=== PATIENT | female | born 1995 | race Caucasian/White ===

== ENCOUNTER 2019-02-10 04:19 | Inpatient (IN) ==
[2019-02-10] MEDS ORDERED: BUTORPHANOL 2 MG/ML VIAL IV PRN (04:27)
[2019-02-10] MEDS ORDERED: ONDANSETRON 4 MG/2 ML VIAL IV PRN ×2 (04:27→06:25)
[2019-02-10] MEDS ORDERED: MEPERIDINE 50 MG/1 ML VIAL IV PRN (04:27)
[2019-02-10] MEDS ORDERED: OXYTOCIN/LR 20 UNIT/1,000 ML BAG IV SCH (04:30)
[2019-02-10] MEDS ORDERED: LACTATED RINGERS 1,000 ML IV SCH (04:30)
[2019-02-10] MEDS ORDERED: miSOPROStol 200 MCG TABLET ONE (04:39)
[2019-02-10] MEDS ORDERED: METHYLERGONOVINE 0.2 MG/1 ML AMP ONE (04:40)
[2019-02-10] MEDS ORDERED: CARBOPROST TROMETHAMINE 250 MCG/ML AMP IM ONE (04:40)
[2019-02-10] MEDS ORDERED: OXYTOCIN/LR 20 UNIT/1,000 ML BAG IV ONE ×2 (04:57→06:25)
[2019-02-10 05:17] LABS: Basophils % 0.2 % (0.0-0.8); Eosinophils % 0.2 % (0.00-10.9); Hematocrit 31.5 VOL% (35.7-47.0); Hemoglobin 9.9 GM/DL (12.0-16.0); Immature Granulocytes % 0.5 %; Immature Granulocytes Absolute 0.03 #; Lymphocytes # 1.5 10*3/uL (1.4-4.0); Lymphocytes % 22.2 % (21.3-54.2); Mean Corpuscular HGB Conc 31.4 GM/DL (32-36); Mean Corpuscular Volume 79.1 FL (87-102); Mean Platelet Volume 11.6 FL (9.6-12.0); Monocytes % 8.9 % (1.7-12.7); Platelet Count 199 T/CUMM (130-400); Red Blood Count 3.98 MC/CUMM (3.8-5.5); Red Cell Distribution Width 16.1 % (9.3-17.3); White Blood Count 6.6 T/CUMM (4-12)
[2019-02-10 05:37] LABS: Alanine Aminotransferase 16 U/L (13-56); Albumin 2.6 G/DL (3.4-5.0); Alkaline Phosphatase 170 U/L (45-117); Aspartate Amino Transferase 12 U/L (0-37); Bilirubin,Total < 0.39 MG/DL (0.2-1.0); Blood Urea Nitrogen 6 MG/DL (7-18); Glucose 116 MG/DL (74-106); Osmolality,Calculated 277.4 MOS/KG (273-304); Total Protein 7.1 G/DL (6.4-8.3)
[2019-02-10] MEDS ORDERED: LIDOCAINE 1% 50 ML VIAL ONE (05:53)
[2019-02-10] MEDS ORDERED: LANOLIN 50% CREAM 0.3 OZ TUBE TOP PRN (06:25)
[2019-02-10] MEDS ORDERED: WITCH HAZEL PADS 100/JAR TOP PRN (06:25)
[2019-02-10] MEDS ORDERED: RHO(D) IMMUNE GLOBULIN 300 MCG SYRINGE IM ONE (06:25)
[2019-02-10] MEDS ORDERED: HYDROCORTISONE 2.5% RECTAL CREAM 30 GM TUBE TOP PRN (06:25)
[2019-02-10] MEDS ORDERED: ACETAMINOPHEN 325 MG TABLET PO PRN (06:25)
[2019-02-10] MEDS ORDERED: DIPH/TET/ACEL PERT BOOSTER VACCINE 0.5 ML VIAL IM ONE (06:25)
[2019-02-10] MEDS ORDERED: BISACODYL 10 MG SUPP RECTAL PRN (06:25)
[2019-02-10] MEDS ORDERED: BENZOCAINE 20%/MENTHOL 0.5% SPRAY 56 GM CAN TOP PRN (06:25)
[2019-02-10] MEDS ORDERED: MEASLES/MUMPS/RUBELLA VACCINE 0.5 ML VIAL SUBCUT ONE (06:25)
[2019-02-10 08:07] LABS: Apearance,Urine CLEAR (Clear); Bacteria,Urine Occasional /HPF (Few); Bilirubin,Urine Negative (Negative); Blood, Urine Negative (Negative); Glucose,Urine (UA) Negative (Negative); Ketones,Urine 5 mg/dL (Negative); Mucus,Urine Occasional /LPF (Occasional); Nitrite,Urine Negative (Negative); Protein,Urine Negative; RBC,Urine 1 /HPF (0-4); Squamous Epithelial Cell,Urine Occasional /HPF (0-10); Urine Color Yellow (Yellow); Urine Specific Gravity 1.026 (1.001-1.035); Urine Urobilinogen < 2.0 EU/DL (0.2-1.0); WBC,Urine 1 /HPF (0-6)
[2019-02-10] MEDS: oxyCODONE/ACETAMINOPHEN 5-325 MG TABLET PO PRN (08:42)
[2019-02-10] MEDS: MULTIVITAMIN (PRENATAL) TABLET PO SCH (09:47)
[2019-02-10] MEDS: DOCUSATE SODIUM 100 MG CAPSULE PO SCH ×2 (09:47→20:39)
[2019-02-10] MEDS: FERROUS SULFATE 325 MG TABLET PO SCH ×2 (09:47→20:39)
[2019-02-10] MEDS: IBUPROFEN 800 MG TABLET PO PRN (15:26)
[2019-02-11] MEDS: IBUPROFEN 800 MG TABLET PO PRN ×2 (03:15→23:39)
[2019-02-11] MEDS: MAGNESIUM HYDROXIDE SUSP 30 ML UDCUP PO PRN ×2 (03:15→14:12)
[2019-02-11 06:31] LABS: Basophils % 0.2 % (0.0-0.8); Eosinophils % 0.2 % (0.00-10.9); Hematocrit 28.1 VOL% (35.7-47.0); Hemoglobin 8.9 GM/DL (12.0-16.0); Immature Granulocytes % 0.9 %; Immature Granulocytes Absolute 0.07 #; Lymphocytes # 2.4 10*3/uL (1.4-4.0); Lymphocytes % 29.6 % (21.3-54.2); Mean Corpuscular HGB Conc 31.7 GM/DL (32-36); Mean Corpuscular Volume 79.4 FL (87-102); Mean Platelet Volume 11.5 FL (9.6-12.0); Monocytes % 7.3 % (1.7-12.7); Neutrophils % 61.8 % (38.7-73.9); Platelet Count 178 T/CUMM (130-400); Red Blood Count 3.54 MC/CUMM (3.8-5.5); Red Cell Distribution Width 16.1 % (9.3-17.3); White Blood Count 8.1 T/CUMM (4-12)
[2019-02-11] MEDS: DOCUSATE SODIUM 100 MG CAPSULE PO SCH ×2 (10:44→21:12)
[2019-02-11] MEDS: MULTIVITAMIN (PRENATAL) TABLET PO SCH (10:45)
[2019-02-11] MEDS: FERROUS SULFATE 325 MG TABLET PO SCH ×2 (10:45→21:12)
[2019-02-11] MEDS ORDERED: MAGNESIUM CITRATE 300 ML BOTTLE PO ONE (15:37)
[2019-02-12] MEDS: oxyCODONE/ACETAMINOPHEN 5-325 MG TABLET PO PRN (01:53)
[2019-02-12 07:40] VITALS: BP 126/81
[2019-02-12] MEDS: FERROUS SULFATE 325 MG TABLET PO SCH (09:06)
[2019-02-12] MEDS: DOCUSATE SODIUM 100 MG CAPSULE PO SCH (09:06)
[2019-02-12] MEDS: MULTIVITAMIN (PRENATAL) TABLET PO SCH (09:06)
== END 2019-02-12 12:40 | disposition home or self-care (01) | DRG 807 ==
LOC: N.LDOUT 04:19 → N.LD 04:23 → N.OB 08:48
PROVIDERS: ADMIT Obstetrics & Gynecology; ATTEND Obstetrics & Gynecology

== ENCOUNTER 2020-03-07 10:00 | Inpatient (IN) ==
[~2020-03-07 10:00] MED LIST: AMPICILLIN INJ 2,000 MG in SODIUM CHLORIDE 0.9% 100 ML IV ONE
[2020-03-07] MEDS ORDERED: MEPERIDINE 50 MG/1 ML VIAL IV PRN (10:10)
[2020-03-07] MEDS ORDERED: ONDANSETRON 4 MG/2 ML VIAL IV PRN (10:10)
[2020-03-07] MEDS ORDERED: LIDOCAINE 1% 50 ML VIAL MISC INJ ONE (10:10)
[2020-03-07] MEDS ORDERED: BUTORPHANOL 2 MG/ML VIAL IV PRN (10:10)
[2020-03-07] MEDS ORDERED: OXYTOCIN/LR 20 UNIT/1,000 ML BAG IV SCH (10:30)
[2020-03-07] MEDS ORDERED: LACTATED RINGERS 1,000 ML IV SCH (10:30)
[2020-03-07 10:32] LABS: Basophils % 0.1 % (0.0-0.8); Eosinophils % 0.3 % (0.00-10.9); Hematocrit 28.4 VOL% (35.7-47.0); Hemoglobin 8.9 GM/DL (12.0-16.0); Immature Granulocytes % 0.3 %; Immature Granulocytes Absolute 0.02 #; Lymphocytes # 2.3 10*3/uL (1.4-4.0); Lymphocytes % 32.4 % (21.3-54.2); Mean Corpuscular HGB Conc 31.3 GM/DL (32-36); Mean Corpuscular Volume 78.5 FL (87-102); Mean Platelet Volume 10.9 FL (9.6-12.0); Monocytes % 6.4 % (1.7-12.7); Neutrophils % 60.5 % (38.7-73.9); Platelet Count 194 T/CUMM (130-400); Red Blood Count 3.62 MC/CUMM (3.8-5.5); Red Cell Distribution Width 15.3 % (9.3-17.3); White Blood Count 7.2 T/CUMM (4-12)
[2020-03-07 10:53] LABS: Albumin 2.4 G/DL (3.4-5.0); Bilirubin,Total 1.1 MG/DL (0.2-1.0); Calcium 8.6 MG/DL (8.5-10.1); Osmolality,Calculated 274.5 MOS/KG (273-304)
[2020-03-07 10:54] LABS: Lymphocytes 38 % (20-55); Platelet Estimate Adequate; Segmented Neutrophils 58 % (50-85); Total Cells Counted 100
[2020-03-07 10:55] LABS: Hypochromasia 1+
[2020-03-07] MEDS ORDERED: miSOPROStoL 200 MCG TABLET ONE (12:52)
[2020-03-07] MEDS ORDERED: METHYLERGONOVINE 0.2 MG/1 ML AMP ONE (12:53)
[2020-03-07] MEDS ORDERED: CARBOPROST TROMETHAMINE 250 MCG/ML AMP IM ONE (12:53)
[2020-03-07] MEDS ORDERED: TRANEXAMIC ACID 1,000 MG/10 ML VIAL ONE (12:53)
[2020-03-07 14:02] LABS: Cord Arterial Blood HCO3 24.7 MMOL/L
[2020-03-07 14:05] LABS: Cord Venous Blood HCO3 24.7 MMOL/L; Cord Venous Blood PCO2 39.5 MMHG; Cord Venous Blood PO2 45.6
[2020-03-07] MEDS ORDERED: AMPICILLIN INJ 1,000 MG in SODIUM CHLORIDE 0.9% 100 ML IV SCH (14:30)
[2020-03-07] MEDS: ACETAMINOPHEN/CODEINE 300-30 MG TABLET PO PRN ×2 (16:50→20:34)
[2020-03-07] MEDS: IBUPROFEN 800 MG TABLET PO PRN (16:50)
[2020-03-07] MEDS: DOCUSATE SODIUM 100 MG CAPSULE PO SCH (20:34)
[2020-03-07] MEDS: MAGNESIUM HYDROXIDE SUSP 30 ML UDCUP PO PRN (20:34)
[2020-03-08] MEDS: ACETAMINOPHEN/CODEINE 300-30 MG TABLET PO PRN ×2 (01:17→13:13)
[2020-03-08 05:57] LABS: Basophils % 0.2 % (0.0-0.8); Eosinophils # 0.1 10*3/uL (0.0-0.87); Eosinophils % 0.6 % (0.00-10.9); Hemoglobin 7.2 GM/DL (12.0-16.0); Immature Granulocytes % 0.4 %; Immature Granulocytes Absolute 0.03 #; Lymphocytes # 2.8 10*3/uL (1.4-4.0); Lymphocytes % 35.3 % (21.3-54.2); Mean Corpuscular Volume 81.1 FL (87-102); Mean Platelet Volume 11.5 FL (9.6-12.0); Monocytes % 5.2 % (1.7-12.7); Neutrophils % 58.3 % (38.7-73.9); Platelet Count 180 T/CUMM (130-400); Red Blood Count 2.96 MC/CUMM (3.8-5.5); Red Cell Distribution Width 15.2 % (9.3-17.3)
[2020-03-08 06:37] LABS: Lymphocytes 36 % (20-55); Platelet Estimate Normal
[2020-03-08 06:40] LABS: Anisocytosis 1+; Hypochromasia 2+; Macrocytosis 1+; Segmented Neutrophils 60 % (50-85); Total Cells Counted 100
[2020-03-08] MEDS: MAGNESIUM HYDROXIDE SUSP 30 ML UDCUP PO PRN (10:55)
[2020-03-08] MEDS: DOCUSATE SODIUM 100 MG CAPSULE PO SCH ×2 (10:55→21:15)
[2020-03-08] MEDS: FERROUS SULFATE 325 MG TABLET PO SCH ×3 (10:55→21:15)
[2020-03-08] MEDS: IBUPROFEN 800 MG TABLET PO PRN (13:13)
[2020-03-08] MEDS ORDERED: MAGNESIUM CITRATE 300 ML BOTTLE PO ONE (15:24)
[2020-03-09] MEDS: MAGNESIUM HYDROXIDE SUSP 30 ML UDCUP PO PRN (02:04)
[2020-03-09] MEDS: DOCUSATE SODIUM 100 MG CAPSULE PO SCH (07:30)
[2020-03-09] MEDS: FERROUS SULFATE 325 MG TABLET PO SCH (07:30)
[2020-03-09] MEDS: IBUPROFEN 800 MG TABLET PO PRN (07:31)
[2020-03-09] MEDS: ACETAMINOPHEN/CODEINE 300-30 MG TABLET PO PRN (07:33)
[2020-03-09 08:44] VITALS: BP 141/81
[2020-03-09] MEDS ORDERED: POLYETHYLENE GLYCOL POWDER 17 GM PACK PO SCH (09:00)
== END 2020-03-09 11:30 | disposition home or self-care (01) | DRG 560 ==
LOC: N.LDOUT 10:00 → N.LD 10:02 → N.OB 15:54
PROVIDERS: ADMIT Obstetrics & Gynecology; ATTEND Obstetrics & Gynecology